=== PATIENT | female | born 1975 | race Caucasian/White ===

== ENCOUNTER 2025-06-30 12:53 | Inpatient (IN) | payer OTHER ==
[~2025-06-30] VITALS: Ht 157.5 cm; Wt 52.3 kg
[2025-06-30] MEDS ORDERED: 0.9% SODIUM CHLORIDE 10 ML SYRINGE IVP PRN ×2 (13:30→14:45)
[2025-06-30] MEDS ORDERED: AMLO5TAB66 PO (13:33)
[2025-06-30] MEDS ORDERED: BUPR1TAB32 SL (13:35)
[2025-06-30] MEDS ORDERED: LEVE500T19 PO (13:37)
[2025-06-30 13:54] LABS: PLATELET COUNT (AUTO) 556 K/uL (150-450); RED BLOOD CELL COUNT(AUTO) 5.09 MIL/uL (4.00-5.20); RED CELL DISTRIBUTION WIDTH 13.9 % (11.5-14.5); WHITE BLOOD COUNT (AUTO) 14.4 K/uL (4.5-11.0)
[2025-06-30 14:12] LABS: LACTIC ACID 1.4 mmol/L (0.4-2.0)
[2025-06-30 14:20] LABS: CALCIUM, TOTAL 9.9 mg/dL (8.8-10.5); CREATININE 0.95 mg/dL (0.60-1.30); GLOMERULAR FILTR. RATE CALC > 60 mL/min (>60); GLUCOSE,RANDOM 129 mg/dL (70-110); SODIUM SERUM 133 mmol/L (136-145); UREA NITROGEN, BLOOD 7 mg/dL (7-18)
[2025-06-30] MEDS ORDERED: SODIUM CHLORIDE 0.9% 100 ML ONE (14:40)
[2025-06-30] MEDS ORDERED: IOHEXOL 300 MG/ML 100 ML VIAL ONE (14:40)
[2025-06-30] MEDS: SODIUM CHLORIDE 0.9% 1,550 ML IV ONE (15:07)
[2025-06-30] MEDS: CefTRIAXone 1 GM/DEXTROSE 50 ML IV SCH (15:08)
[2025-06-30] MEDS: VANCOMYCIN 1GM/WATER(PEG/NADA) 200 ML IV ONE (15:16)
[2025-06-30] MEDS: HEPARIN SODIUM,PORCINE 5,000 UNITS/ML VIAL SQ SCH (15:31)
[2025-06-30] MEDS: LIDOCAINE 1% 10 ML VIAL ID ONE (16:14)
[2025-06-30 18:32] LABS: APPEARANCE,URINE CLEAR (CLEAR); GLUCOSE, URINE (UA) NEGATIVE (NEGATIVE); LEUKOCYTE ESTERASE ,URINE NEGATIVE (NEGATIVE); NITRATE,URINE NEGATIVE (NEGATIVE); OCCULT BLOOD,URINE NEGATIVE (NEGATIVE); SPECIFIC GRAVITIY, URINE 1.014 (1.003-1.030)
[2025-06-30] MEDS: DOCUSATE SODIUM 100 MG CAPSULE PO SCH (20:20)
[2025-06-30] MEDS: VANCOMYCIN 750 MG/WATER(PEG) 150 ML IV ONE (22:13)
[2025-06-30] MEDS: ACETAMINOPHEN 325 MG TABLET PO PRN (22:20)
[2025-07-01] MEDS: ONDANSETRON HCL 4 MG/2 ML VIAL IVP PRN (00:41)
[2025-07-01 01:30] VITALS: BP 136/90; PULSE 81; RESP 18; TEMP 98.8; O2SAT 98
[2025-07-01 06:21] LABS: PLATELET COUNT (AUTO) 534 K/uL (150-450); RED BLOOD CELL COUNT(AUTO) 4.83 MIL/uL (4.00-5.20); RED CELL DISTRIBUTION WIDTH 14.0 % (11.5-14.5); WHITE BLOOD COUNT (AUTO) 10.1 K/uL (4.5-11.0)
[2025-07-01 06:27] VITALS: BP 130/84; PULSE 74; RESP 18; TEMP 98.2; O2SAT 100
[2025-07-01 06:58] LABS: CALCIUM, TOTAL 8.6 mg/dL (8.8-10.5); CREATININE 0.71 mg/dL (0.60-1.30); GLOMERULAR FILTR. RATE CALC > 60 mL/min (>60); GLUCOSE,RANDOM 116 mg/dL (70-110); SODIUM SERUM 139 mmol/L (136-145); UREA NITROGEN, BLOOD 6 mg/dL (7-18)
[2025-07-01] MEDS ORDERED: SODIUM CHLORIDE 0.9% 1,000 ML ONE (07:39)
[2025-07-01] MEDS: VANCOMYCIN 750 MG/WATER(PEG) 150 ML IV SCH (07:45)
[2025-07-01 08:53] VITALS: BP 145/91; PULSE 72; RESP 18; TEMP 97.7; O2SAT 99
[2025-07-01] MEDS: BUPRENORPHINE HCL/NALOXONE HCL 8-2 MG SUBLINGUAL TABLET SL SCH (08:54)
[2025-07-01 19:36] VITALS: BP 119/78; PULSE 85; RESP 18; TEMP 98.6; O2SAT 97
[2025-07-02 07:31] LABS: CALCIUM, TOTAL 8.8 mg/dL (8.8-10.5); CREATININE 0.91 mg/dL (0.60-1.30); GLOMERULAR FILTR. RATE CALC > 60 mL/min (>60); GLUCOSE,RANDOM 107 mg/dL (70-110); SODIUM SERUM 142 mmol/L (136-145); UREA NITROGEN, BLOOD 10 mg/dL (7-18)
[2025-07-02 08:00] VITALS: BP 112/75; PULSE 85; RESP 18; TEMP 98.2; O2SAT 95
[2025-07-02] MEDS: CLINDAMYCIN 600 MG/D5% WATER 50 ML IV SCH (12:02)
[2025-07-02 16:35] VITALS: BP 102/64; PULSE 83; RESP 16; TEMP 98.1; O2SAT 98
[2025-07-02 20:00] VITALS: BP 102/63; PULSE 88; RESP 18; TEMP 97.7; O2SAT 98
[2025-07-03 07:56] LABS: PLATELET COUNT (AUTO) 433 K/uL (150-450); RED BLOOD CELL COUNT(AUTO) 4.37 MIL/uL (4.00-5.20); RED CELL DISTRIBUTION WIDTH 13.8 % (11.5-14.5); WHITE BLOOD COUNT (AUTO) 5.2 K/uL (4.5-11.0)
[2025-07-03 08:00] VITALS: BP 100/78; PULSE 77; RESP 18; TEMP 98.1; O2SAT 98
[2025-07-03 08:32] LABS: CALCIUM, TOTAL 8.5 mg/dL (8.8-10.5); CREATININE 1.0 mg/dL (0.60-1.30); GLOMERULAR FILTR. RATE CALC 59.0 mL/min (>60); GLUCOSE,RANDOM 92.0 mg/dL (70-110); SODIUM SERUM 140.0 mmol/L (136-145); UREA NITROGEN, BLOOD 12.0 mg/dL (7-18)
[2025-07-03] MEDS ORDERED: AMOX-457 PO (14:32)
[2025-07-03 16:03] VITALS: BP 105/66; PULSE 79; RESP 16; TEMP 97.8; O2SAT 95
[2025-07-03 20:52] VITALS: BP 106/62; PULSE 88; RESP 20; TEMP 97.9; O2SAT 98
[2025-07-04 05:16] VITALS: BP 92/62; PULSE 76; RESP 20; TEMP 98.2; O2SAT 100
[2025-07-04 07:01] LABS: PLATELET COUNT (AUTO) 406 K/uL (150-450); RED BLOOD CELL COUNT(AUTO) 4.23 MIL/uL (4.00-5.20); RED CELL DISTRIBUTION WIDTH 14.3 % (11.5-14.5); WHITE BLOOD COUNT (AUTO) 4.4 K/uL (4.5-11.0)
[2025-07-04 07:11] LABS: CALCIUM, TOTAL 8.8 mg/dL (8.8-10.5); CREATININE 0.89 mg/dL (0.60-1.30); GLOMERULAR FILTR. RATE CALC > 60 mL/min (>60); GLUCOSE,RANDOM 99 mg/dL (70-110); SODIUM SERUM 142 mmol/L (136-145); UREA NITROGEN, BLOOD 10 mg/dL (7-18)
[2025-07-04 08:47] VITALS: BP 107/67; PULSE 84; RESP 18; TEMP 97.9; O2SAT 100
[2025-07-04 15:56] VITALS: BP 118/70; PULSE 83; RESP 18; TEMP 98.4; O2SAT 100
== END 2025-07-04 16:40 | DRG 872 ==
LOC: EMS 12:56 → EDH 14:34 → 4S 07-01 01:15
PROVIDERS: ADMIT Internal Medicine; ATTEND Internal Medicine
PROC: 0J910ZZ Drainage of Face Subcutaneous Tissue and Fascia, Open Approach (ICD-10-PCS; principal; 2025-06-30)
DX: A41.9 Sepsis, unspecified organism (principal); F15.10 Other stimulant abuse, uncomplicated; K12.2 Cellulitis and abscess of mouth; G40.909 Epilepsy, unspecified, not intractable, without status epilepticus; I10 Essential (primary) hypertension; Z88.2 Allergy status to sulfonamides; Z79.899 Other long term (current) drug therapy
CPT/HCPCS: 70491; 80048; 80202; 81003; 83605; 83735; 84145; 85025; 87040; 93005; 96365; 96366; 99285; G0378; J0696; J1644; J2405; J3490; J7030; J7050; Q9967; 36415-L1; 36415-TC